=== PATIENT | male | born 2000 | race African-American/Black ===

== ENCOUNTER 2019-10-08 05:28 | Emergency (ER) | payer OTHER ==
[~2019-10-08] VITALS: Ht 182.9 cm; Wt 68.0 kg
--- NOTE | 2019-10-08 05:30 | NUR ---
Patient to ER bed 07 for evaluation. Side rails up.
[2019-10-08 05:43] VITALS: BP_SYST 115
--- NOTE | 2019-10-08 05:50 | NUR ---
AWAKE, ALERT. PT STATES THAT HE HAD BEEN HAVING COUGH , CONGESTION, WEAKNESS, DIFFICULTY SLEEPING, SOB X1 DAY, RUNNY NOSE.
--- NOTE | 2019-10-08 05:55 | NUR ---
ER at bedside examining patient.
[2019-10-08 06:50] VITALS: BP_SYST 115
--- NOTE | 2019-10-08 06:50 | NUR ---
Patient given written and verbal discharge instructions and verbalizes understanding. ER DR RETA STARR discussed with patient the results and treatment provided. Patient in stable condition. ID arm band removed. Rx of TAMIFLU, PROMETHAZINE given. Patient educated on pain management and to follow up with PMD. Pain Scale . Opportunity for questions provided and answered. Medication side effect fact sheet provided.
== END 2019-10-08 06:50 | disposition home or self-care (01) ==
LOC: SED 05:28
DX: J10.1 Influenza due to other identified influenza virus with other respiratory manifestations (principal); J45.909 Unspecified asthma, uncomplicated; F17.200 Nicotine dependence, unspecified, uncomplicated; F12.90 Cannabis use, unspecified, uncomplicated; Z88.8 Allergy status to other drugs, medicaments and biological substances
CPT/HCPCS: 36415; 86710; 99283